=== PATIENT | male | born 1935 | race Caucasian/White ===

== ENCOUNTER → 2022-12-24 | Outpatient (CLI) | payer MEDICARE, SELFPAY ==
--- NOTE | 2022-12-24 13:47 | EKG12_ITS ---
Test Reason : PREOP Blood Pressure : / mmHG Vent. Rate : 068 BPM Atrial Rate : 068 BPM P-R Int : 338 ms QRS Dur : 146 ms QT Int : 424 ms P-R-T Axes : 070 -56 092 degrees QTc Int : 450 ms Sinus rhythm with 1st degree A-V block Left bundle branch block Abnormal ECG Confirmed by HESHAM SHEA, NEHA ([id number]), photographic editor SCARLETT MARSHALL ([id number]) on 12/28/2022 8:05:55 AM Referred By: Ricky Parker Confirmed By:NEHA DAHL MD
== END | disposition home or self-care (01) ==
PROVIDERS: PCP Physician Assistant Medical; Referring Provider Urology; Visit Provider Urology
DX: Z01.810 Encounter for preprocedural cardiovascular examination (principal)
CPT/HCPCS: 93005